=== PATIENT | female | born 1990 | race Two or more races ===

== ENCOUNTER 2022-10-04 10:57 | Emergency (ER) | payer OTHER ==
[~2022-10-04] VITALS: Ht 177.8 cm; Wt 76.2 kg
[2022-10-04] MEDS ORDERED: TAPAZOLE5 MG PO (11:23)
[2022-10-04] MEDS ORDERED: LOPRESSOR25 MG PO (11:24)
== END 2022-10-04 14:25 | disposition home or self-care (01) ==
LOC: ER 10:57
DX: M54.2 Cervicalgia (principal); M54.9 Dorsalgia, unspecified